=== PATIENT | male | born 1965 | race Caucasian/White ===

== ENCOUNTER → 2018-06-20 | Outpatient (CLI) | payer BC, OTHER ==
--- NOTE | 2018-06-20 18:41 | PN ---
PROGRESS NOTE Teja is 53, coming in for a routine CPAP checkup. He was diagnosed having obstructive sleep apnea approximately 4 years ago. He is utilizing CPAP at a pressure of 8 cm of water. He is using the Campo FX medium-sized mask with a chinstrap. He has been averaging around 6.9 hours of CPAP use, and his CPAP use for more than 4 hours is 29/30. He is doing extremely well. He is benefitting from treatment. No recent weight gain or weight loss. No new onset of medical problems or comorbidities. His blood pressure remains under good control. He is sleeping a good 7 hours per night. He is waking up refreshed and alert during the day. No other medical problems or comorbidities at this point in time. REVIEW OF SYSTEMS: Twelve-point review of system was done. Positive findings were all mentioned above in the history of present illness. PHYSICAL EXAMINATION: BP is 134/90, pulse 65, respirations 16, temperature 98.3, saturation 97% on room air. Weight 269. Height is 6 feet 2 inches and neck size is 17 inches. GENERAL APPEARANCE: Calm, comfortable. Head is atraumatic, normocephalic. NECK: Supple. There is no JVD. No goiter or neck masses. Mallampati class IV. LUNGS: Clear to auscultation. HEART: Heart sounds are regular rate and rhythm. Normal S1, S2. No S3, S4. No murmurs. ABDOMEN: Soft, nontender. No organomegaly. EXTREMITIES: No edema. No cyanosis or clubbing. IMPRESSION: Symptomatic obstructive sleep apnea, currently on CPAP pressure of 8. PLAN: The patient continues to be successfully treated with CPAP. He continues to benefit from the treatment. His baseline AHI is 17 and he remains on a pressure of 8 and he has been benefiting from the treatment, as the patient has not gained or lost any weight over the past 4 years. His machine is functional. We will renew his CPAP supplies, which include the Campo FX mask, medium size, along with a chin strap. He will continue using the same machine, which is a ResMed S9 series and is fully functional. We will see him back in few years' time in followup, earlier if needed. MMODL / IJN: [id number] /
== END | disposition home or self-care (01) ==
LOC: SLEEP 16:04
PROVIDERS: ATTEND Internal Medicine Critical Care Medicine
DX: G47.33 Obstructive sleep apnea (adult) (pediatric) (principal); Z99.89 Dependence on other enabling machines and devices
CPT/HCPCS: 99211

== ENCOUNTER → 2019-08-14 | Outpatient (CLI) | payer BC ==
--- NOTE | 2019-08-14 17:08 | PN ---
PROGRESS NOTE 54-year-old, male patient with known history of obstructive sleep apnea coming in for a routine annual check regarding his obstructive sleep apnea. The patient has a Resmed S9 series CPAP unit which is set at a pressure of 8 cm of water. He has gained around 19 pounds since last evaluation. He used to weigh 269, and currently is up to 288, and he feels that the CPAP seems to be less effective at the current pressure. He is waking up and he is a bit sleepy and his [place] Score is at 11. No snoring while on CPAP treatment and the patient using a Campo FX medium size nose mask/pillow with a chin strap. He has been very compliant. He is averaging more than 6.5 hours of CPAP use per night and his CPAP use for more than 4 hours is above 90%. Otherwise his other comorbidities are all under stable check and the patient has developed no CAD/CHF or any CVA. No altered mentation. Sleep is non fragmented and is able to initiate and maintain sleep without any major difficulties. REVIEW OF SYSTEMS: Fourteen-point review of system was done. Positive for weight gain. No clear-cut history of snoring while on CPAP treatment. No morning headaches or altered mentation. No nausea, vomiting, or heartburn or chest pain at night time. No major swelling in lower extremities. PHYSICAL EXAMINATION: VITAL SIGNS: BP is 126/88, pulse 72, respirations 16, temp 97.9. Saturation 95% on room air. Height is 6'2", weight is 288, BMI 36.4. General appearance: Calm and comfortable in no acute distress. HEAD is atraumatic, normocephalic. NECK: Supple. There is no JVD. No goiter or neck masses. Mallampati class 4. Lungs diminished, otherwise clear. HEART: Heart sounds are regular rate and rhythm. Normal S1, S2. No S3, S4. No murmurs. ABDOMEN: Soft, nontender. No organomegaly. EXTREMITIES: No edema. No cyanosis or clubbing. NEUROLOGIC: Awake and alert. There are no focal neurological deficits. PSYCHIATRIC: Negative for anxiety or depression. IMPRESSION: 1. Obstructive sleep apnea currently on CPAP with a pressure of 8 cm of water. Treatment has been somewhat suboptimal as the patient has gained around 19 pounds. Possibility that the patient's pressure requirements have changed or the patient is having a malfunctioning CPAP unit. 2. Obesity with interval weight gain. Current BMI is 36 and body weight is 288. 3. Hypersomnia, [place] score of 11. PLAN: We will offer this patient an APAP machine. It has been 5 years since his last admission. I think it is time to have this patient's machine updated. A new machine will be ordered through [facility]. Meanwhile his current machine will be utilized and I am going to increase the pressure up to 9 cm of water and offer him a Campo FX nose pillow. Encourage weight loss. I will see him back in 30 to 90 days if a new CPAP machine is improved for him. Otherwise, I will see him back in a year's time. MMODL / IJN: [id number] /
== END | disposition home or self-care (01) ==
LOC: SLEEP 15:27
PROVIDERS: ATTEND Internal Medicine Critical Care Medicine
DX: G47.33 Obstructive sleep apnea (adult) (pediatric) (principal); E66.9 Obesity, unspecified; Z68.36 Body mass index [BMI] 36.0-36.9, adult; Z99.89 Dependence on other enabling machines and devices

== ENCOUNTER → 2019-12-18 | Outpatient (CLI) | payer BC ==
--- NOTE | 2019-12-18 18:00 | PN ---
PROGRESS NOTE This is a 54-year-old male patient coming in for a compliance check regarding his obstructive sleep apnea. Since his last visit I was able to get the patient a new CPAP machine, which is a Respironics DreamWear. Note that he was on a ResMed S9 series at a pressure of 8 cm of water and the current machine is set on automatic mode with a minimum pressure of 5 and a maximum pressure of 10. Based on the compliance data, he has been averaging around 6.7 hours of CPAP use per night with an excellent mask fit and AHI being down to 2.8. Nevertheless, he prefers the fixed CPAP more than the APAP mode, and the appropriate adjustment was done today. He is doing well. He has no major hypersomnia or sleepiness during the day. He is using the AirFit P30i nose pillows. REVIEW OF SYSTEMS: Fourteen-point review of systems was done. Positive findings were all mentioned above in the history of present illness. Treatment is successful. PHYSICAL EXAMINATION: VITAL SIGNS: BP is 135/94, pulse 71, respirations 16, temperature 97.7. [place] score is 8. Weight is 293. GENERAL APPEARANCE: Calm, comfortable. HEAD: Atraumatic, normocephalic. NECK: Supple. Mallampati class IV. No goiter or neck masses. LUNGS: Clear to auscultation. HEART: Heart sounds are regular rate and rhythm. Normal S1, S2. No S3, S4. No murmurs. ABDOMEN: Soft, nontender. No organomegaly. EXTREMITIES: No edema. No cyanosis or clubbing. NEUROLOGIC: Awake and alert. There is no focal neurological deficit. PSYCHIATRIC: Negative for anxiety or depression. IMPRESSION: Obstructive sleep apnea, currently on CPAP. The patient has a Respironics Dream Station with an APAP mode, minimum pressure of 5, maximum pressure of 10, compliant, and treatment is successful. Nevertheless, he prefers the routine CPAP mode rather than an APAP mode. PLAN: 1. Change the patient to a CPAP mode with a pressure of 8 cm of water based on his previous CPAP settings. 2. Keep the AirFit P30i nose pillows. 3. Encourage weight loss. 4. He has been averaging more than 6 hours of CPAP use per night. 5. Implement good sleep hygiene measures. 6. Add a C-flex of 3. 7. Eliminate RAMP time. 8. See me back in a year's time, earlier if needed. Treatment is successful for now. MMODL / IJN: [id number] /
== END | disposition home or self-care (01) ==
LOC: SLEEP 16:33
PROVIDERS: ATTEND Internal Medicine Critical Care Medicine
DX: G47.33 Obstructive sleep apnea (adult) (pediatric) (principal); Z99.89 Dependence on other enabling machines and devices

== ENCOUNTER → 2020-06-10 | Outpatient (CLI) | payer BC, OTHER ==
--- NOTE | 2020-06-10 22:23 | CT ---
EXAMINATION TYPE: CT cervical spine wo con DATE OF EXAM: 06/10/2020 COMPARISON: None HISTORY: chronic neck pain CT DLP: 671.2 mGycm Automated exposure control for dose reduction was used. TECHNIQUE: CT scan of the cervical spine is obtained without contrast, axial images are obtained, sagittal and c oronal reformatted images are also reviewed. FINDINGS: Patient shows postop changes status post anterior cervical fusion and discectomy at C5-C7. There is s treak artifact present. Facet arthropathy changes are present, screws at C5 course through the septic tank servicer ior cortex of the vertebral body and courses into the cervical canal by approximately 2 to 3 mm likel y causing anterior mass effect on the thecal sac. C7 screws also transgress the posterior margin of the vertebral body and courses into the canal by ap proximately 2 to 4 mm. There is some foraminal encroachment on the left at C2-3, on the right at C3-4 and bilateral C5-6, an d the left at C6-7. Gas density at C4-5 the right neural foramen may be due to vacuum phenomenon, unc overtebral joint hypertrophy or possibly disc herniation. There is vacuum phenomenon present at the d isc space at C4-5 with associated spondylosis, loss of disc height is present at C2-3, C3-4 and C4-5. Cervical vertebral bodies show preserved height. There is reversal the normal cervical lordosis. IMPRESSION: Postop changes as described, degenerative disc disease.
== END | disposition home or self-care (01) ==
LOC: RADCTMAIN 17:32
PROVIDERS: ATTEND Neurological Surgery
DX: M50.30 Other cervical disc degeneration, unspecified cervical region (principal); Z98.1 Arthrodesis status; Z98.890 Other specified postprocedural states
CPT/HCPCS: 72125

== ENCOUNTER → 2020-12-23 | Outpatient (CLI) | payer BC ==
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
== END | disposition home or self-care (01) ==
LOC: SLEEP 16:24
PROVIDERS: ATTEND Internal Medicine Critical Care Medicine
DX: G47.33 Obstructive sleep apnea (adult) (pediatric) (principal); E66.9 Obesity, unspecified; Z99.89 Dependence on other enabling machines and devices; Z87.828 Personal history of other (healed) physical injury and trauma

== ENCOUNTER → 2021-09-22 | Outpatient (CLI) | payer BC ==
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
== END ==
LOC: SLEEP 15:58
PROVIDERS: ATTEND Internal Medicine Critical Care Medicine
DX: G47.33 Obstructive sleep apnea (adult) (pediatric) (principal); E66.9 Obesity, unspecified; Z99.89 Dependence on other enabling machines and devices; Z87.828 Personal history of other (healed) physical injury and trauma

== ENCOUNTER → 2022-07-12 | Outpatient (CLI) | payer BC ==
[2022-07-12 22:27] LABS: Basophils # (A) 0.02 X 10*3/uL (0.00-0.10); Basophils % (A) 0.4 %; Eosinophils # (A) 0.12 X 10*3/uL (0.04-0.35); Eosinophils % (A) 2.5 %; HCT 41.8 % (39.6-50.0); HGB 14.2 g/dL (13.0-17.0); Immature Grans, Automated 0.2 %; Lymphocytes # (A) 1.29 X 10*3/uL (0.90-5.00); Lymphocytes % (A) 27.3 %; MCH 32.4 pg (27.0-32.0); MCV 95.4 fL (80.0-97.0); Mean Platelet Volume 10.7 fL (9.5-12.2); Monocytes # (A) 0.47 X 10*3/uL (0.20-1.00); NRBC Per 100 WBC 0 /100 WBCS (0.0-0.0); Neutrophils # (A) 2.81 X 10*3/uL (1.80-7.70); Neutrophils % (A) 59.6 %; Platelet Count 171 X 10*3/uL (140-440); RBC 4.38 X 10*6/uL (4.40-5.60); RDW 12.5 % (11.5-14.5); WBC 4.72 X 10*3/uL (4.50-10.00)
[2022-07-12 23:37] LABS: Appearance,Urine Clear (Clear); Bilirubin,Urine Negative (Negative); Blood,Urine Negative (Negative); Color,Urine Yellow (Yellow); Ketones,Urine Negative (Negative); Nitrite,Urine Negative (Negative); PH, Urine 6.5 (5.0-8.0); Specific Gravity,Urine 1.008 (1.001-1.030); Urobilinogen,Urine 0.2 (0.2,1.0)
[2022-07-12 23:46] LABS: African American GFR (CKD) 106.8 (60.0-200.0); Anion Gap 10.3 mmol/L (10.00-18.00); BUN/Creat Ratio 12.88 Ratio (12.00-20.00); Blood Urea Nitrogen 11.9 mg/dL (9.0-27.0); Calcium 9.7 mg/dL (8.7-10.3); Carbon Dioxide 26.6 mmol/L (20.0-27.5); Non-African American GFR(CKD) 92.2 (60.0-200.0); Potassium 4.8 mmol/L (3.5-5.5)
== END | disposition home or self-care (01) ==
LOC: LABPAT 15:51
PROVIDERS: ATTEND Urology
DX: Z01.812 Encounter for preprocedural laboratory examination (principal); N20.1 Calculus of ureter
CPT/HCPCS: 80048; 81003; 85025; 87086

== ENCOUNTER 2022-07-19 13:16 | Day surgery (SDC) | payer BC ==
[2022-07-15 14:35] VITALS: BMI 33.1
[~2022-07-19 13:16] MED LIST: DEXAMETHASONE SOD PHOSPHATE 4 MG/ML 1 ML VIAL IV ONE; HYDROmorphone 0.5 MG/0.5 ML SYRINGE IVP PRN; LACTATED RINGERS 1,000 ML IV SCH; LIDOCAINE 1% (10MG/ML) FOR IV START INTRADERMA PRN; MIDAZOLAM 2 MG/2 ML VIAL IV PRN; ONDANSETRON 4 MG/2 ML VIAL IVP ONE
--- NOTE | 2022-07-19 14:52 | P.HPIHPCON ---
History of Present Illness H&P Date: 07/19/22 Chief Complaint: Left ureteral, renal stones This is a 57-year-old male with history of 1.1 cm left-sided UPJ stone, and an additional 1 cm lower pole, and a 4 mm left mid pole stone. Option of ureteroscopy with holmium laser was discussed. Discussed also alternative of ES WL. Discussed the risk and benefit of each approach. He agreed to proceed with left-sided ureteroscopy with holmium laser. Discussed the risk which includes but not limited to bleeding, infection, injury to the ureter. Discussed also the risk from anesthesia. He understood all the risk and agreed to proceed with left-sided ureteroscopy, with holmium laser lithotripsy, stone basketing and stent insertion. Consent for Procedure: I have explained the operation/procedure to the patient, including the risks, benefits, side effects, alternative therapies (including not receiving the proposed treatment or service), the likelihood of the patient achieving his/her goals, and potential recuperation problems for the procedure/sedation/analgesia, as well as any blood products, if indicated. I also explained to the patient the risks, benefits and side effects of the alternatives, as well as the risks related to not receiving the proposed procedure, care, treatment, or services. Past Medical History Past Medical History: Hypertension Additional Past Medical History / Comment(s): KIDNEY STONES History of Any Multi-Drug Resistant Organisms: None Reported Past Surgical History: Hernia Repair, Joint Replacement, Orthopedic Surgery Additional Past Surgical History / Comment(s): NECK SX. COLONOSCOPY. LT SIXTO. RT SHOULDER SX Past Anesthesia/Blood Transfusion Reactions: No Reported Reaction Smoking Status: Former smoker - Past Family History Mother Family Medical History: No Reported History Medications and Allergies Home Medications Medication Instructions Recorded Confirmed Type Celecoxib [CeleBREX] 200 mg PO DAILY 07/15/22 07/19/22 History lisinopriL [Zestril] 10 mg PO DAILY 07/15/22 07/19/22 History Allergies Allergy/AdvReac Type Severity Reaction Status Date / Time No Known Allergies Allergy Verified 07/19/22 13:57 Surgical - Exam Vital Signs Resp 18 07/19/22 13:45 - General no distress, moderate pain - Eyes normal ocular movement, no pale - ENT normal nares, normal mucosa Assessment and Plan Assessment: OR for left-sided ureteroscopy, holmium laser lithotripsy, stone basketing and stent insertion
[2022-07-19] MEDS ORDERED: PROPOFOL 10 MG/ML 20 ML VIAL IV ONE (15:10)
[2022-07-19] MEDS ORDERED: LIDOCAINE 2% INJ 20 MG/ML (2 ML VIAL) ONE (15:10)
[2022-07-19] MEDS ORDERED: fentaNYL (PF) 50 MCG/ML 2 ML AMP ONE (15:10)
[2022-07-19] MEDS ORDERED: MIDAZOLAM 2 MG/2 ML VIAL ONE (15:10)
--- NOTE | 2022-07-19 16:31 | P.OP ---
Date of Procedure: 07/19/22 Preoperative Diagnosis: Left renal stones Postoperative Diagnosis: Same Procedure(s) Performed: Cystoscopy, left ureteroscopy, holmium laser lithotripsy, stone basketing and stent insertion Implants: 6-Sinhala by 28 cm stent in the left ureter or left on a string Anesthesia: BALTAZAR Surgeon: Davon Pro Estimated Blood Loss (ml): 5 Pathology: other (left renal stones) Condition: stable Disposition: PACU Indications for Procedure: This is a 57-year-old male with history of 1.1 cm left-sided UPJ stone, and an additional 1 cm lower pole, and a 4 mm left mid pole stone. Option of ureteroscopy with holmium laser was discussed. Discussed also alternative of ESWL. Discussed the risk and benefit of each approach. He agreed to proceed with left-sided ureteroscopy with holmium laser. Discussed the risk which includes but not limited to bleeding, infection, injury to the ureter. Discussed also the risk from anesthesia. He understood all the risk and agreed to proceed with left-sided ureteroscopy, with holmium laser lithotripsy, stone basketing and stent insertion. Operative Findings: Multiple stones in the left kidney Description of Procedure: Patient brought to the operating room, general anesthesia was induced. He was prepped and draped in sterile fashion and placed in dorsal lithotomy position. Cystoscopy fitted with 21-Sinhala sheath was inserted per urethra, cystoscopy was performed which showed no abnormality within the bladder. Attention was then carried to the left ureteral orifice which was intubated with a sensor wire. Next under fluoroscopy 1113 Sinhala access sheath was passed over the wire and into the proximal ureter. Next a flexible ureteroscope was inserted through the access sheath, renoscopy was performed which showed a total of 3 stones, one in the renal pelvis and one in the midpole and one within the lower pole. Using the holmium laser the stones were dusted. Sizable fragments were removed and sent for analysis. Repeat renoscopy showed no sizable stone fragment or injury to the kidney. Pullback ureteroscopy was performed which showed no ureteral fragments or injury to ureter. As the ureteroscope was withdrawn a sensor wire was advanced through. Next a ureteral stent was passed over the wire, the proximal curl was visualized on fluoroscopy and the distal curl was visualized using the cystoscope. The bladder was emptied at the end of the case. Patient tolerated the procedure well was taken to recovery in stable condition
[2022-07-19 16:40] VITALS: TEMP 97
[2022-07-19 16:59] VITALS: RESP 16
--- NOTE | 2022-07-19 17:11 | XR ---
EXAMINATION TYPE: XR KUB DATE OF EXAM: 07/19/2022 Comparison: None Clinical History: 57-year-old male KIDNEY STONES Findings: Left renal calculi measuring 1.5 and 0.7 cm. Punctate smaller left-sided renal calculi are suggested. Nonobstructive bowel gas pattern. Mild overall stool burden. Multiple pelvic fluid. Central prosthet ic calcifications also noted. There is a left hip total arthroplasty partially visualized. Impression: Left sided nephrolithiasis with stones measuring up to 1.5 cm.
[2022-07-19 17:39] VITALS: BP 150/94; PULSE 71
--- NOTE | 2022-07-19 19:31 | FL ---
Intraoperative/procedural fluoroscopic services were provided. Total fluoroscopy time is 35 seconds w ith a total of 2 submitted images to PACS. Please see the operative/procedural note for further detai ls.
== END 2022-07-19 17:50 | disposition home or self-care (01) ==
LOC: OR 13:16
PROVIDERS: ATTEND Urology
DX: N20.0 Calculus of kidney (principal); I10 Essential (primary) hypertension; Z90.89 Acquired absence of other organs; Z98.890 Other specified postprocedural states; Z87.891 Personal history of nicotine dependence; Z79.899 Other long term (current) drug therapy
CPT/HCPCS: 52356; 82365; 74018; C2625; C1769; J2250; J1100; J0690; J2405; J3010; J2704; J2001

== ENCOUNTER → 2022-08-25 | Outpatient (CLI) | payer BC ==
--- NOTE | 2022-08-26 11:11 | MR ---
EXAMINATION TYPE: MR kidney wo/w con DATE OF EXAM: 08/25/2022 6:34 PM INDICATION: Patient age:Male; 57 years old; Reason for study: D41.02 NEOPLASM OF UNCERTAIN BEHAVIOR OF LEFT KIDN. Follow up to xray for left kidn ey stone. COMPARISON: KUB 07/19/2022 TECHNIQUE: Multiplanar multi-sequence imaging was performed without contrast. Post contrast imaging was performed. Post IV contrast subtraction images were also submitted for review. IV Contrast: 12 cc Gadavist FINDINGS: LOWER CHEST: No gross irregularity. ABDOMEN Liver: Suspected shunt phenomenon and anterior right liver along the capsule series 901 image 591 whi ch does not shadow becomes isointense to background parenchyma on delayed imaging. Gallbladder and Bile ducts: Unremarkable. Pancreas: Unremarkable. Spleen: Unremarkable. Adrenal glands: Unremarkable. Kidneys: Intrinsic high T1 signal cysts bilaterally are seen measuring up to 6 mm on the right and 14 mm on th e left. Right renal cyst which is high T2 signal low T1 signal measuring 17 mm. Calcifications within the left kidney seen on prior radiograph are not definitively visualized, likel y secondary to MRI technique. There is no evidence of enhancing mass in either kidney. No evidence of hydronephrosis. Stomach and Bowel: Unremarkable as visualized. Peritoneum: No evidence of pneumoperitoneum, free fluid, or adenopathy. Vasculature: Unremarkable. No aortic aneurysm. Abdominal wall: Unremarkable. Musculoskeletal: The osseous structures appear intact. T6, T12 and L1 high T2 signal nonenhancing les ions could represent focal fat versus vertebral body hemangiomas. These are low signal on fat suppres sed sequences. IMPRESSION: 1. Bilateral proteinaceous/hemorrhagic cysts without evidence for mass. 2. Left renal calculi not well appreciated on this MRI exam. Consider noncontrast CT for evaluation for renal stones.
== END | disposition home or self-care (01) ==
LOC: RADMRIMAIN 17:38
PROVIDERS: ATTEND Urology
DX: D41.02 Neoplasm of uncertain behavior of left kidney (principal); N20.0 Calculus of kidney
CPT/HCPCS: 74183; A9585

== ENCOUNTER → 2023-05-11 | Outpatient (CLI) | payer OTHER ==
--- NOTE | 2023-05-11 18:59 | MR ---
EXAMINATION TYPE: MR lumbar spine wo con DATE OF EXAM: 05/11/2023 6:45 PM COMPARISON: None. CLINICAL INDICATION: Male, 58 years old with history of M54.12, M47.812; Low back pain into left side TECHNIQUE: Multi planar, multi sequence imaging was performed utilizing: T1-weighted, T2-weighted, a nd turbo inversion recovery imaging of the lumbar spine. IV Contrast: None. FINDINGS: Alignment: The lumbar vertebral bodies have preserved heights and alignment. Cord: The conus medullaris and the distal spinal cord appear unremarkable with regards to their signa l intensity and morphology. Bones/Discs: Multilevel disc degeneration changes with scattered disc space narrowing, osteophytes pr esent. There is facet joint arthropathy and disc desiccation at multiple levels also present. High T2 /T1 signal T12 and L1 vertebral body with vertebral body hemangiomas. T12-L1: No evidence of significant spinal canal stenosis or neural foraminal stenosis. L1-L2: No evidence of significant spinal canal stenosis or neural foraminal stenosis. L2-L3: Disc bulge and facet joint arthropathy result in mild spinal canal and mild bilateral neural f oraminal stenosis. L3-L4: Disc bulge and facet joint arthropathy result in mild spinal canal and mild bilateral neural f oraminal stenosis. L4-L5: Disc bulge and facet joint arthropathy result in mild spinal canal and mild bilateral neural f oraminal stenosis. L5-S1: The disc is rounded posterior morphology without significant spinal canal stenosis. Facet join t arthropathy with mild neural foraminal stenosis. No significant spinal canal or neural foraminal stenosis in the remainder of the visualized levels. Other findings: None. IMPRESSION: 1. No definitive evidence of disc herniation or significant spinal canal or neural foraminal stenosi s. 2. Mild disc degeneration with associated osteoarthritic changes.
--- NOTE | 2023-05-11 19:10 | MR ---
EXAMINATION TYPE: MR cervical spine wo/w con DATE OF EXAM: 05/11/2023 INDICATION: Patient age: Male; 58 years old; Reason for study: M54.12, M47.812; . Cervicalgia, Pain in neck into left side, Headaches COMPARISON: None TECHNIQUE: Multi planar, multi sequence imaging was performed utilizing: T1-weighted, T2-weighted, an d turbo inversion recovery imaging of the cervical spine. IV Contrast: 12 cc Gadavist FINDINGS: Alignment: The cervical vertebral bodies have preserved heights. Alignment is within normal limits gi essence patient positioning. Bones: Mild osteophyte formation throughout the spine. Fixation changes at C5-C6 and C7. There is radha e inversion recovery signal edema within the transverse processes of C7 bilaterally. No abnormal post contrast enhancement. Cord: The spinal cord is unremarkable with regards to their signal intensity and morphology. Discs: Multilevel disc desiccation is present. C2-C3: No significant disc pathology. The spinal canal is patent. Bilateral facet and uncovertebral joint arthropathy are present with mild left neural foraminal stenosis. The right neural foramen is p atent. C3-C4: No significant disc pathology. The spinal canal is patent. Bilateral facet and uncovertebral joint arthropathy are present with mild bilateral neural foraminal stenosis. C4-C5: No significant disc pathology. The spinal canal is patent. Bilateral facet and uncovertebral joint arthropathy are present with mild to moderate right neural foraminal stenosis. The left neural foramen is patent. C5-C6: No significant disc pathology. The spinal canal is patent. No neural foraminal stenosis. C6-C7: No significant disc pathology. The spinal canal is patent. Bilateral facet and uncovertebral joint arthropathy are present with mild left neural foraminal stenosis. The right neural foramen is p atent. C7-T1: No significant disc pathology. The spinal canal is patent. Bilateral facet and uncovertebral joint arthropathy are present with moderate to severe bilateral neural foraminal stenosis. Other: None. IMPRESSION: 1. No evidence for disc herniation or significant spinal canal stenosis. No abnormal postcontrast enh ancement. 2. Postsurgical change C5-C6 and C7 with stress reaction osseous edema within the bilateral transvers e processes of C7 and T1. 3. Neural foraminal stenosis worse at C7-T1 with moderate to severe bilateral.
== END | disposition home or self-care (01) ==
LOC: RADMRIMAIN 17:27
PROVIDERS: ATTEND Physical Medicine & Rehabilitation
DX: M50.121 Cervical disc disorder at C4-C5 level with radiculopathy (principal); M48.02 Spinal stenosis, cervical region; M51.24 Other intervertebral disc displacement, thoracic region; M51.16 Intervertebral disc disorders with radiculopathy, lumbar region; M41.26 Other idiopathic scoliosis, lumbar region; M47.812 Spondylosis without myelopathy or radiculopathy, cervical region; Z98.890 Other specified postprocedural states
CPT/HCPCS: 72148; 72156; A9585